=== PATIENT | male | born 1970 | race Caucasian/White ===

== ENCOUNTER 2022-01-07 21:53 | Emergency (ER) | payer OTHER, SELFPAY ==
--- NOTE | ~2022-01-07 | XR_ITS ---
EXAMINATION: XR chest 2V 01/07/2022 22:06 INDICATION: Right-sided abdomen pain. PROCEDURE: 2 view chest COMPARISON: 02/20/2008 FINDINGS: The lungs are clear. The cardiomediastinal silhouette is within normal limits. There are no pleural effusions. There is no pneumothorax suspected. IMPRESSION: 1: NO ACUTE CARDIOPULMONARY DISEASE. Reviewed, dictated and finalized at location A.
--- NOTE | 2022-01-07 21:55 | ECG_ITS ---
Measurements Intervals [place] Rate: 59 P: 74 TX: 142 QRS: 54 QRSD: 93 T: 57 QT: 385 QTc: 382 Interpretive Statements SINUS BRADYCARDIA OTHERWISE NORMAL ECG NO PREVIOUS ECG AVAILABLE FOR COMPARISON Electronically Signed On 01-08-2022 11:04:50 CDT by [email or web address] [email or web address] M.D.
--- NOTE | 2022-01-07 21:55 | ED.CHESTPAIN ---
HPI - Chest Pain General Chief Complaint: Chest Pain Stated Complaint: pain right side of chest Time Seen by Provider: 01/07/22 21:54 History of Present Illness HPI narrative: 51-year-old male presents emergency room for evaluation of a right anterior chest pain that has been present for 4 days. Patient describes pain as a sharp stabbing pain that radiates from the right anterior chest through to the back. States pain is worse with inspiration, movements, and applying pressure. Patient states the pain abruptly began upon wakening. He also admits to recently having a nonproductive cough. He says that he was evaluated at urgent care 3 days ago, and was told that he may or may not have a pulled muscle and was prescribed Flexeril. Patient states the Flexeril has not alleviated his. An EKG or chest x-ray or any lab work or not completed at that time. Patient also states he went to a chiropractor yesterday, and that did not alleviate any of his symptoms either. Patient denies any injury or trauma to his chest. Patient denies history of cancer, extended periods of immobility, or previous diagnosis of DVT or PE. Related Data Allergies Allergy/AdvReac Type Severity Reaction Status Date / Time No Known Allergies Allergy Mild Verified 02/20/08 10:32 Review of Systems Review of Systems: CONSTITUTIONAL: Denies fever, chills, or sweats. EYES: Denies visual changes, redness, or discharge. ENT: Denies rhinorrhea, congestion, sore throat, or otalgia. CARDIOVASCULAR: Reports chest pain RESPIRATORY: Reports cough GASTROINTESTINAL: Denies abdominal pain, nausea, vomiting, or diarrhea. GENITOURINARY: Denies dysuria or hematuria. SKIN: Denies rash or itching. MUSCULOSKELETAL: Denies back pain, joint pain, or myalgia. NEUROLOGIC: Denies headache, numbness, dizziness, or weakness. PSYCHIATRIC: Denies anxiety or depression. Exam Narrative: GENERAL: Well-appearing, well-nourished, and in no acute distress. HEAD: Normocephalic, atraumatic. EYES: PERRLA and EOMI. CHEST: Clear to auscultation. No respiratory distress. No wheezes rales or rhonchi. Right anterior chest tender to palpation HEART: Regular rate and rhythm. No murmur heard. Normal peripheral pulses. EXTREMITIES: Normal range of motion. No edema. SKIN: Warm, dry, no rash. NEURO: No focal deficits. Alert and oriented x3. PSYCH: Normal mood and affect. MDM - Chest Pain MDM Narrative Medical decision making narrative: 51-year-old male presents the emergency room with dyspnea most likely secondary to pleurisy. Presentation is not consistent with any acute cardiac etiologies, CHF, pericardial effusion or tamponade. Presentation not consistent with any acute respiratory etiology including a PE, (as his D-dimer was low) pneumothorax, asthma or COPD exacerbation. Presentation is also most consistent with a noncardiopulmonary causes including toxidromes, metabolic etiologies or neurologic causes. ECG Data EKG #1: ECG completion date: 01/07/22 ECG completion time: 22:03 EKG Interpretation: bradycardia, sinus rhythm, no ectopy, normal QRS and normal QT Discharge Plan Discharge Clinical Impression: Chest pain, Pleurisy Patient Disposition: Home, Self-Care Condition: Stable Instructions: Antibiotic Form, Chest Pain (ED), Pleurisy (ED) Additional Instructions: Take prednisone as prescribed. Per day experiencing any relief 3 to 4 days, follow-up with primary care physician. Prescriptions: New prednisone 20 mg tablet 60 mg PO DAILY 5 Days Qty: 15 0RF Follow-up/Referrals: Ra Ponce MD [Physician] - Time of Disposition: 23:39
[2022-01-07 21:57] VITALS: BP 136/96; PULSE 55; RESP 20; TEMP 36.4; O2SAT 97
[2022-01-07 22:23] LABS: Basophils Absolute Auto 0.1 K/mm3 (0.0-0.1); Basophils Percent Auto 0.5 % (0.2-1.2); Eosinophils Absolute Auto 0.2 K/mm3 (0-0.3); Eosinophils Percent Auto 1.6 % (0-4.4); Hematocrit 47.7 % (42.0-52.0); Hemoglobin 15.8 g/dL (14.0-18.0); Immature Granulocyte Absolute 0.02 K/mm3 (0.00-0.031); Immature Granulocyte Percent A 0.2 % (0-0.5); Lymphocytes Absolute Auto 3.07 K/mm3 (0.9-3.2); Lymphocytes Percent Auto 29.5 % (18.3-44.2); Mean Corpuscular HGB Conc 33.1 g/dl (32-36); Mean Corpuscular Volume 96.8 fl (80-100); Mean Platelet Volume 9.4 fl (7.4-10.4); Monocytes Absolute Auto 0.9 K/mm3 (0.1-0.6); Monocytes Percent Auto 8.6 % (2.6-8.5); Neutrophils Absolute Auto 6.2 K/mm3 (1.3-6.7); Neutrophils Percent Auto 59.6 % (45.5-73.1); Platelet Count Result 301 k/mm3 (150-375); Red Blood Count 4.93 M/mm3 (4.6-6.20); White Blood Count 10.4 K/mm3 (4.5-10.0)
[2022-01-07] MEDS: methylPREDNISolone SOD SUCC 125 MG VIAL IV PUSH (22:32)
[2022-01-07 22:33] LABS: Alanine Aminotransferase 25 U/L (6-50); Albumin Level 4.4 g/dL (3.5-5.1); Alkaline Phosphatase 59 U/L (38-126); Anion Gap 4 mmol/L (8-16); Aspartate Amino Transferase 31 U/L (17-59); Bilirubin,Total 0.6 mg/dL (0.2-1.3); Blood Urea Nitrogen 18 mg/dL (9-20); Calcium 9.4 mg/dL (8.4-10.2); Carbon Dioxide 30 mmol/L (22-30); Chloride 102 mmol/L (98-107); Estimated CRCL calculation 75 ml/min; Estimated Glomerular Filt Rate > 60; Glucose 90 mg/dL (65-110); Potassium 4.8 mmol/L (3.4-5.0); Sodium 136 mmol/L (137-145)
[2022-01-07 22:45] LABS: Troponin I < 0.012 ng/mL (0.000-0.034)
[2022-01-07 23:28] LABS: D Dimer 0.27 ug/mL (<0.48)
[2022-01-07 23:46] VITALS: BP 134/84; PULSE 55; RESP 18; O2SAT 97
== END 2022-01-07 23:46 | disposition home or self-care (01) ==
PROVIDERS: Emergency Medicine; Emergency Provider Nurse Practitioner Family; PCP Internal Medicine
DX: R09.1 Pleurisy (principal); R00.1 Bradycardia, unspecified
CPT/HCPCS: 36415; 71046; 80053; 84484; 85025; 85380; 93005; 96374; 99284; J2930